=== PATIENT | male | born 1980 | race Caucasian/White ===

== ENCOUNTER 2024-01-22 16:16 | Emergency (ER) | payer SELFPAY ==
--- NOTE | 2024-01-22 17:16 | RAD REPORT ---
EXAM DESCRIPTION: CT - Chest Abd Pelvis Wo Con - 01/22/2024 4:47 pm CLINICAL HISTORY: Fall with chest and abdominal pain COMPARISON: none TECHNIQUE: Computed axial tomography of the chest, abdomen and pelvis was obtained. Oral contrast wa s given. IV contrast was not requested. All CT scans are performed using dose optimization technique as appropriate and may include automated exposure control or mA/KV adjustment according to patient size. FINDINGS: The evaluation of mediastinum, cody, vessels and solid organs is limited secondary to the lack of IV contrast administration A lung contusion is not present. A pleural effusion is not present. A pericardial effusion is not seen. A mediastinal hematoma is not seen. The liver, spleen, pancreas, adrenals, kidneys and bladder do not demonstrate a traumatic injury. There is no evidence of diverticulitis. Small left inguinal hernia IMPRESSION: No acute traumatic injury involving the chest, abdomen or pelvis is seen
--- NOTE | 2024-01-22 17:19 | EDPHYS ---
Physician Documentation [facility] Name: John Rodriguez Age: 44 yrs Sex: Male : 1980 Arrival Date: 01/22/2024 Time: 16:16 Bed 16 Private MD: ED Physician Vincenzo Carter HPI: 01/21 17:32 This 44 yrs old Male presents to ER via Ambulatory with complaints of Fall Injury, Back kb Pain. 17:32 Pt is a 44 year old male who presents for pain to right side of back and right kb hip/pelvis after falling on ladder 4 days ago. States he was working on a roof and the ladder slipped off of the porch it was on causing him to fall onto his right side on roof. States the ladder got stuck in the ground after falling off of the porch so he was able to catch himself on the ladder and did not fall to the ground.. Historical: - Allergies: 16:30 No Known Allergies; hb - Home Meds: 16:30 None [Active]; hb - PMHx: 16:30 None; hb - PSHx: 16:30 None; hb - Immunization history:: Adult Immunizations up to date. - Infectious Disease History:: Denies. - Social history:: Smoking status: Reported history of juuling and/or vaping. ROS: 17:31 Constitutional: As per HPI kb Exam: 17:31 Constitutional: This is a well developed, well nourished patient who is awake, alert, kb and in no acute distress. Head/Face: Normocephalic, atraumatic. ENT: Moist Mucous membranes Chest/axilla: Normal chest wall appearance and motion. Cardiovascular: Regular rate Respiratory: Respirations even and unlabored. No increased work of breathing. Talking in full sentences Abdomen/GI: Soft, non-tender. No distention Skin: Warm, dry with normal turgor. Normal color. MS/ Extremity: Pulses equal, no cyanosis. Neurovascular intact. Full, normal range of motion. Neuro: Awake and alert, GCS 15, oriented to person, place, time, and situation. Moves all extremities. Normal gait. 17:31 Back: pain, that is moderate, of the right flank, Vital Signs: 16:26 BP 157 / 100; Pulse 97; Resp 16; Temp 97.8(TE); Pulse Ox 100% on R/A; Weight 72.57 kg; hb Height 5 ft. 10 in. ; Pain 10/10; 17:50 BP 168 / 102; Pulse 93; Resp 16; Pulse Ox 99% ; dd2 16:26 Body Mass Index 22.96 (72.57 kg, 177.8 cm) hb 16:26 Pain Scale: Adult hb MDM: 16:21 Patient medically screened. kb 17:32 Differential diagnosis: contusion, fracture, strain. Data reviewed: vital signs, nurses kb notes. Counseling: I had a detailed discussion with the patient and/or guardian regarding the historical points, exam findings, and any diagnostic results supporting the discharge/admit diagnosis, radiology results, the need for outpatient follow up, a family practitioner, to return to the emergency department if symptoms worsen or persist or if there are any questions or concerns that arise at home. 01/21 16:34 Order name: CT Chest Abdomen Pelvis W/O Contrast; Complete Time: 17:18 kb Administered Medications: 17:47 Drug: HYDROcodone-acetaminophen PO 5 mg-325 mg 1 tabs PO once Route: PO; dd2 17:51 Follow up: Response: Medication administered at discharge. dd2 17:47 Drug: Diazepam PO 5 mg PO once Route: PO; dd2 17:51 Follow up: Response: Medication administered at discharge. dd2 Disposition Summary: 01/22/24 17:19 Discharge Ordered Notes: Location: Home kb Condition: Stable kb Diagnosis - Contusion of right flank kb Followup: kb - With: Emergency Department - When: As needed - Reason: Worsening of condition Followup: kb - With: Private Physician - When: 2 - 3 days - Reason: Recheck today's complaints, Continuance of care, Re-evaluation by your physician Discharge Instructions: - Discharge Summary Sheet kb - Musculoskeletal Pain kb Forms: - Medication Reconciliation Form kb - Antibiotic Education kb - Prescription Opioid Use kb - Patient Portal Instructions kb - Leadership Thank You Letter kb Prescriptions: - Diclofenac Sodium 75 mg Oral tablet, delayed release (enteric coated) - take 1 tablet ORAL route 2 times per day As needed; 30 tablet; Refills: 0, kb Product Selection Permitted - orphenadrine citrate 100 mg Oral Tablet Sustained Release - take 1 tablet ORAL route 2 times per day As needed; 20 tablet; Refills: 0, kb Product Selection Permitted Signatures: Dispatcher [employer] Denise Castillo, SAP GATHERER-C SAP GATHERER-Carleen Pina, RN RN MERISSA Cervantes RN RN dd2
--- NOTE | 2024-01-22 17:19 | ER ---
Nurse's Notes [facility] Name: John Rodriguez Age: 44 yrs Sex: Male : 1980 Arrival Date: 01/22/2024 Time: 16:16 Bed 16 Private MD: Diagnosis: Contusion of right flank Presentation: 01/21 16:26 Chief complaint: Fell from ladder while working on roof yesterday, hit right flank and hb hip on side of trailer, c/o pain 03/28. Coronavirus screen: At this time, the client does not indicate any symptoms associated with coronavirus-19. Ebola Screen: No symptoms or risks identified at this time. Initial Sepsis Screen: Does the patient meet any 2 criteria? No. Patient's initial sepsis screen is negative. Does the patient have a suspected source of infection? No. Patient's initial sepsis screen is negative. Risk Assessment: Do you want to hurt yourself or someone else? Patient reports no desire to harm self or others. Onset of symptoms was January 21, 2024. 16:26 Method Of Arrival: Ambulatory hb 16:26 Acuity: BAY 3 hb Historical: - Allergies: 16:30 No Known Allergies; hb - Home Meds: 16:30 None [Active]; hb - PMHx: 16:30 None; hb - PSHx: 16:30 None; hb - Immunization history:: Adult Immunizations up to date. - Infectious Disease History:: Denies. - Social history:: Smoking status: Reported history of juuling and/or vaping. Screenin:45 [facility] ED Fall Risk Assessment (Adult) History of falling in the last 3 months, dd2 including since admission Yes- single mechanical fall (1 pt) Confusion or Disorientation No (0 pts) Intoxicated or Sedated No (0 pts) Impaired Gait No (0 pts) Mobility Assist Device Used No (0 pt) Altered Elimination No (0 pt) Score/Fall Risk Level 0 - 2 = Low Risk Oriented to surroundings, Maintained a safe environment, Educated pt \T\ family on fall prevention, incl call for assistance when getting out of bed, Assessed \T\ reinforced patient's understanding of fall precautions, Hourly rounding (assess needs \T\ fall precautionary measures) done. Abuse screen: Denies threats or abuse. Denies injuries from another. Nutritional screening: No deficits noted. Tuberculosis screening: No symptoms or risk factors identified. Assessment: 16:45 General: Appears in no apparent distress. uncomfortable, Behavior is calm, cooperative, dd2 appropriate for age. Pain: Complains of pain in right flank. Neuro: No deficits noted. Cardiovascular: No deficits noted. Respiratory: No deficits noted. GI: No deficits noted. : No deficits noted. EENT: No deficits noted. Derm: No deficits noted. Musculoskeletal: Reports pain in right hip and right flank. Vital Signs: 16:26 BP 157 / 100; Pulse 97; Resp 16; Temp 97.8(TE); Pulse Ox 100% on R/A; Weight 72.57 kg; hb Height 5 ft. 10 in. ; Pain 10/10; 17:50 BP 168 / 102; Pulse 93; Resp 16; Pulse Ox 99% ; dd2 16:26 Body Mass Index 22.96 (72.57 kg, 177.8 cm) hb 16:26 Pain Scale: Adult hb ED Course: 16:18 Patient arrived in ED. mr 16:21 Denise Navarrete FNP-C is PHCP. kb 16:21 Vincenzo Carter MD is Attending Physician. kb 16:30 Triage completed. hb 16:32 Arm band placed on. hb 16:45 Patient has correct armband on for positive identification. Bed in low position. Call dd2 light in reach. Side rails up X 1. Provided Education on: CALL LIGHT, MEDS, . Pulse ox on. NIBP on. Door closed. Noise minimized. Lights dimmed. Warm blanket given. Pillow given. 16:45 No provider procedures requiring assistance completed. Patient did not have IV access dd2 during this emergency room visit. 16:48 CT Chest Abdomen Pelvis W/O Contrast In Process Unspecified. EDMS 17:45 MERISSA NAJERA, RN is Primary Nurse. dd2 Administered Medications: 17:47 Drug: HYDROcodone-acetaminophen PO 5 mg-325 mg 1 tabs PO once Route: PO; dd2 17:51 Follow up: Response: Medication administered at discharge. dd2 17:47 Drug: Diazepam PO 5 mg PO once Route: PO; dd2 17:51 Follow up: Response: Medication administered at discharge. dd2 Medication: 16:45 VIS not applicable for this client. dd2 Outcome: 17:19 Discharge ordered by MD. meyers 17:50 Discharged to home ambulatory, dd2 17:50 Condition: improved 17:50 Discharge instructions given to patient, Instructed on discharge instructions, follow up and referral plans. medication usage, Demonstrated understanding of instructions, follow-up care, medications, Prescriptions given X 2, 17:51 Patient left the ED. dd2 Signatures: Dispatcher [employer] EDMS Denise Navarrete, DIRECT CARE PROVIDER-C DIRECT CARE PROVIDER-Lida Weldon, Reg Reg mr Carleen Kumar, RN RN MERISSA Cervantes RN RN dd2
[2024-01-22] MEDS ORDERED: HYDROCODONE/APAP 5/325 MG TAB ONE (17:46)
[2024-01-22] MEDS ORDERED: DIAZEPAM 5 MG TABLET ONE (17:46)
[2024-01-22 22:17] VITALS: TEMP 97.8
[2024-01-22 22:19] VITALS: BP 168/102; O2SAT 99
== END 2024-01-22 17:51 | disposition home or self-care (01) ==
LOC: ER 16:16
DX: S30.1XXA Contusion of abdominal wall, initial encounter (principal)
CPT/HCPCS: 71250; 74176; 99283

== ENCOUNTER 2025-03-23 14:09 | Emergency (ER) | payer OTHER, SELFPAY ==
--- NOTE | 2025-03-23 15:06 | RAD REPORT ---
EXAM: Chest Single View HISTORY: 45 years Male COUGH COMPARISON: No prior exams FINDINGS: LUNGS/PLEURA: The lungs are clear. No pleural effusions or pneumothorax. No pulmonary edema. CARDIAC/MEDIASTINUM: The cardiac silhouette is within normal limits. UPPER ABDOMEN: No significant abnormality. BONES: No acute abnormality. LINES/TUBES/OTHER: Metallic foreign body overlies the right upper chest wall. IMPRESSION: No evidence of acute cardiopulmonary disease.
[2025-03-23] MEDS ORDERED: NA CHLORIDE 0.9% 1,000 ML ONE (15:12)
[2025-03-23] MEDS ORDERED: FOLIC ACID 5 MG/ML VIAL ONE (15:12)
[2025-03-23 15:23] LABS: Absolute Lymphocytes (CBC) 1.5 K/uL (0.7-4.9); Hematocrit 44.6 % (39.6-49.0); Hemoglobin 15.4 g/dL (13.6-17.9); MCH 32.7 pg (27.0-35.0); MCHC 34.6 g/dL (32.0-36.0); MCV 94.6 fL (80-100); MPV 7.7 fL (7.6-11.3); Nucleated RBC Absolute Count 0.0 (0-0); Nucleated Red Blood Cells % 0.1 % (0-0); RBC Red Blood Cell Count 4.72 M/uL (4.33-5.43); White Blood Count 6.80 thou/uL (4.3-10.9)
[2025-03-23 15:24] LABS: Urine Microscopic Reflex YN NO UMIC
[2025-03-23] MEDS ORDERED: LORazepam 2 MG/ML VIAL ONE ×2 (15:24→16:14)
[2025-03-23 15:39] LABS: PT Prothrombin Time 11.8 SECONDS (10-13.0); Protime INR 1.05
[2025-03-23] MEDS ORDERED: ASPIRIN 81 MG CHEWABLE TABLET ONE (15:39)
[2025-03-23 15:49] LABS: ALT/SGPT 26 U/L (16-61); Albumin 3.8 g/dL (3.4-5.0); Albumin/Globulin Ratio 1.0 (1.1-1.8); Alkaline Phosphatase 65 U/L (45-117); Anion Gap 9.4 mEq/L (5.0-15.0); BUN Blood Urea Nitrogen 12 mg/dL (7-18); Bilirubin Indirect, Calculated 0.3 mg/dL (0.2-0.8); Globulin 3.7 g/dL (2.3-3.5); Glucose Level 114 mg/dL (74-106); HDL Cholesterol 85 mg/dL (40-60); LDL Cholesterol, Calculated 92 mg/dL (<130); LDL Cholesterol,Calc NonReport 92; Lipase 42 U/L (13-75); Magnesium 2.1 mg/dL (1.6-2.4); NT PRO-BNP 186 pg/mL (<125); Potassium 4.4 mEq/L (3.5-5.1)
--- NOTE | 2025-03-23 15:50 | RAD REPORT ---
EXAMINATION: Ct Stroke Brain Wo Cont CLINICAL INDICATION: Male, 45 years old.STROKE ALERT TECHNIQUE: Axial CT images from the skull base to the vertex without intravenous contrast. Coronal an d sagittal reformatted images were created from the data set. One or more of the following dose reduction techniques were used: Automated exposure control, adjustment of the mA and/or kV according to patient size, and/or iterative reconstruction. Unless otherwise specified, incidental findings do not require dedicated imaging follow-up. [id number]. COMPARISON: No prior exams FINDINGS: INTRACRANIAL: No acute intracranial hemorrhage. No acute large vascular territory infarct. No hydroce phalus. No mass effect or midline shift. No significant white matter disease. VASCULATURE: No visualized abnormalities in the arteries or dural venous sinuses. SCALP/SKULL: No calvarial fracture identified. No acute soft tissue abnormality. SINUSES: Circumferential thickening in the left maxillary sinus No significant mastoid fluid. IMPRESSION: No acute intracranial abnormality. The findings were communicated to Dr. Villaseñor on 03/23/2025 3:47 PM.
--- NOTE | 2025-03-23 15:51 | RAD REPORT ---
EXAMINATION: Neck Angio CLINICAL INDICATION: Male, 45 years old. PAIN TECHNIQUE: Axial CT images were obtained from the aortic arch to the skull base after intravenous con trast utilizing angiographic protocol with 3D post-processing (maximum intensity projection images, volume rendered images and/or shaded surface rendered images). One or more of the following dose redu ction techniques were used: Automated exposure control, adjustment of the mA and/or kV according to patient size, and/or iterative reconstruction. Unless otherwise specified, incidental findings do not require dedicated imaging follow-up. [id number]. NASCET criteria used. Mild 0-49% stenosis Moderate 50-69% stenosis Severe 70-99% stenosis COMPARISON: No prior exam. FINDINGS: AORTA: Normal RIGHT: - CCA: No flow limiting stenosis (>= 50%). No dissection. - ICA: No flow limiting stenosis (>= 50%). No dissection. - ECA: No flow limiting stenosis (>= 50%). No dissection. LEFT: - CCA: No flow limiting stenosis (>= 50%). No dissection. - ICA: No flow limiting stenosis (>= 50%). No dissection. - ECA: No flow limiting stenosis (>= 50%). No dissection. VERTEBRAL: Patent SOFT TISSUE: No significant neck soft tissue abnormalities. The visualized lung apices are clear. 3D images confirm these findings. IMPRESSION: No arterial dissection or stenosis identified within the neck.
--- NOTE | 2025-03-23 15:51 | RAD REPORT ---
EXAMINATION: Head angio CLINICAL INDICATION: Male, 45 years old. TIA TECHNIQUE: Axial CT images were obtained through the head after intravenous contrast utilizing angiog raphic protocol with 3D post-processing (maximum intensity projection images, volume rendered images and/or shaded surface rendered images). One or more of the following dose reduction technique s were used: Automated exposure control, adjustment of the mA and/or kV according to patient size, and/or iterative reconstruction. Unless otherwise specified, incidental findings do not require dedic ated imaging follow-up. COMPARISON: No prior exam. FINDINGS: RIGHT: ICA: No aneurysm, stenosis, or occlusion. CRISTY: No aneurysm, stenosis, or occlusion. MCA: No aneurysm, stenosis, or occlusion. RN COMPLEX CARE: No aneurysm, stenosis, or occlusion. LEFT: ICA: No aneurysm, stenosis, or occlusion. CRISTY: No aneurysm, stenosis, or occlusion. MCA: No aneurysm, stenosis, or occlusion. RN COMPLEX CARE: No aneurysm, stenosis, or occlusion. Vertebrobasilar: The vertebral arteries are patent. The basilar artery is normal in appearance. 3D images confirm these findings. IMPRESSION: No occlusion, aneurysm, or hemodynamically significant stenosis identified.
--- NOTE | 2025-03-23 16:00 | EDPHYS ---
Physician Documentation [facility] Name: John Rodriguez Age: 45 yrs Sex: Male : 1980 Arrival Date: 03/23/2025 Time: 14:09 Bed 5 Private MD: JUAN MIGUEL Physician Jonnathan Villaseñor HPI: 03/23 15:35 This 45 yrs old Male presents to ER via Ambulatory with complaints of Head liz Pain, Body Tingling- LT SIDE. 15:35 The patient complains of pain to the top of head, left frontal area, left side of the liz back of head, right frontal area and right side of the back of head. The patient describes the headache as aching. Onset: The symptoms/episode began/occurred 3 day(s) ago. The patient's problem is reported as paresthesias, in left upper extremity, in left lower extremity. Onset: The symptoms/episode began/occurred 3 day(s) ago. Duration: The episodes are intermittent. The symptoms are alleviated by nothing. The symptoms are aggravated by nothing. Associated signs and symptoms: Pertinent positives: ANXIOUS. Historical: - Allergies: 14:37 No Known Allergies; db - Home Meds: 14:37 None [Active]; db - PMHx: 14:37 None; db - PSHx: 14:37 None; db - Immunization history:: Adult Immunizations unknown. - Infectious Disease History:: Denies. - Social history:: Smoking status: Reported history of juuling and/or vaping. - Family history:: not pertinent. ROS: 15:35 Constitutional: Negative for fever, chills, and weight loss, Eyes: Negative for injury, liz pain, redness, and discharge, ENT: Negative for injury, pain, and discharge, Neck: Negative for injury, pain, and swelling, Cardiovascular: Negative for chest pain, palpitations, and edema, Respiratory: Negative for shortness of breath, cough, wheezing, and pleuritic chest pain, Abdomen/GI: Negative for abdominal pain, nausea, vomiting, diarrhea, and constipation, Back: Negative for injury and pain, : Negative for injury, bleeding, discharge, and swelling, MS/Extremity: Negative for injury and deformity, Skin: Negative for injury, rash, and discoloration, Psych: Negative for depression, anxiety, suicide ideation, homicidal ideation, and hallucinations, Allergy/Immunology: Negative for hives, rash, and allergies, Endocrine: Negative for neck swelling, polydipsia, polyuria, polyphagia, and marked weight changes, Hematologic/Lymphatic: Negative for swollen nodes, abnormal bleeding, and unusual bruising, 15:35 Neuro: Positive for headache, near syncope, ANXIETY, Exam: 15:36 Radiologist reports: CT HEAD AND CTA'S NEGATIVE liz 15:36 Constitutional: This is a well developed, well nourished patient who is awake, alert, and in no acute distress. Head/Face: Normocephalic, atraumatic. Eyes: Pupils equal round and reactive to light, extra-ocular motions intact. Lids and lashes normal. Conjunctiva and sclera are non-icteric and not injected. Cornea within normal limits. Periorbital areas with no swelling, redness, or edema. ENT: Nares patent. No nasal discharge, no septal abnormalities noted. Tympanic membranes are normal and external auditory canals are clear. Oropharynx with no redness, swelling, or masses, exudates, or evidence of obstruction, uvula midline. Mucous membranes moist. Neck: Trachea midline, no thyromegaly or masses palpated, and no cervical lymphadenopathy. Supple, full range of motion without nuchal rigidity, or vertebral point tenderness. No Meningismus. Chest/axilla: Normal chest wall appearance and motion. Nontender with no deformity. No lesions are appreciated. Cardiovascular: Regular rate and rhythm with a normal S1 and S2. No gallops, murmurs, or rubs. Normal PMI, no JVD. No pulse deficits. Respiratory: Lungs have equal breath sounds bilaterally, clear to auscultation and percussion. No rales, rhonchi or wheezes noted. No increased work of breathing, no retractions or nasal flaring. Abdomen/GI: Soft, non-tender, with normal bowel sounds. No distension or tympany. No guarding or rebound. No evidence of tenderness throughout. Back: No spinal tenderness. No costovertebral tenderness. Full range of motion. Male : Normal genitalia with no discharge or lesions. Skin: Warm, dry with normal turgor. Normal color with no rashes, no lesions, and no evidence of cellulitis. MS/ Extremity: Pulses equal, no cyanosis. Neurovascular intact. Full, normal range of motion., bilateral aka Neuro: Awake and alert, GCS 15, oriented to person, place, time, and situation. Cranial nerves II-XII grossly intact. Motor strength 5/5 in all extremities. Sensory grossly intact. Cerebellar exam normal. Normal gait. Psych: Awake, alert, with orientation to person, place and time. Behavior, mood, and affect are within normal limits. 15:36 ECG was reviewed by the Attending Physician. 15:36 Musculoskeletal/extremity: ROM: no acute changes, intact in all extremities, full active range of motion, full passive range of motion, Circulation is intact in all extremities. Sensation intact. Compartment Syndrome exam of affected extremity: is normal. Joints: All joints appear normal with full range of motion. Weight bearing: able to fully bear weight, DVT Exam: No signs of deep vein thrombosis. no pain, no swelling, no tenderness, negative Homans' sign noted on exam, no appreciated bluish discoloration, no erythema, no increased warmth, 15:36 Neuro: Orientation: is normal, appropriate for stated age, no acute changes, Mentation: is normal, appropriate for stated age, no acute changes, Memory: is normal, appropriate for stated age, no acute changes, Cranial nerves: grossly normal, is grossly normal based on the patient's age, no acute changes, Cerebellar function: is grossly normal, is grossly normal based on the patient's age, no acute changes, Motor: is normal, is grossly normal based on the patient's age, no acute changes, moves all fours, strength is normal, the no evidence of posturing, Sensation: is normal, no obvious gross deficits, appropriate no acute changes, Gait: is steady, appropriate for age, Babinski testing is normal, seizure activity, is not displayed by the patient, Vital Signs: 14:35 BP 134 / 97; Pulse 85; Resp 18; Temp 98.5(O); Pulse Ox 98% ; Weight 61.23 kg; Height 5 db ft. 10 in. ; 15:00 BP 127 / 91; Pulse 79; Resp 18; Pulse Ox 99% on R/A; nh2 16:15 BP 126 / 88; Pulse 82; Resp 18; Pulse Ox 99% on R/A; nh2 14:35 Body Mass Index 19.37 (61.23 kg, 177.8 cm) db NIH Stroke Scale Scores: 15:36 NIHSS Score: 0 liz Irina Coma Score: 15:42 Eye Response: spontaneous(4). Motor Response: obeys commands(6). Verbal Response: liz oriented(5). Total: 15. MDM: 14:21 Medical Screening Exam initiated liz 15:42 Differential diagnosis: cluster headache, cerebral vascular accident, CVA, TIA, liz Dementia, paralysis, Alzheimer disease, Parkinson disease, metabolic disorder, hypertensive headache, intracerebral hemorrhage, neoplasm, sinusitis, subarachnoid bleed, subdural hematoma, temporal arteritis, tension headache, traumatic injuries, trigeminal neuralgia, uremia, vasomotor headache. TNKase (Tenecteplase) Screening: Indications: Definite evidence of stroke, ischemic, embolic, or hypertensive: No. Treatment will start within 4.5 hours onset of symptoms: No. No evidence of intracranial hemorrhage or CT of head and no evidence of peripheral hemorrhage or recent CVA: Yes. Consent for thrombolytic therapy: No. Contraindications: Patient reports onset of signs and symptoms of stroke greater than 6 hours ago: No. Data reviewed: vital signs, nurses notes, lab test result(s), EKG, radiologic studies, plain films. Consideration of Admission/Observation Escalation of care including admission/observation considered. I considered the following discharge prescriptions or medication management in the emergency department Medications were administered in the Emergency Department. See MAR. Independent interpretation of the following test(s) in the Emergency Department EKG: See my EKG interpretation above. Test considered but Not performed: MRI: NO MRI BRAIN. Care significantly affected by the following chronic conditions: NONE , SMOKER , VAPES, ANXIETY. Counseling: I had a detailed discussion with the patient and/or guardian regarding the historical points, exam findings, and any diagnostic results supporting the discharge/admit diagnosis, lab results, radiology results, the need for outpatient follow up, for definitive care, a family practitioner, a neurologist. 03/23 14:23 Order name: Basic Metabolic Panel; Complete Time: 16:34 liz 03/23 14:23 Order name: CBC with Diff; Complete Time: 15:58 liz 03/23 14:23 Order name: LFT's; Complete Time: 16:34 liz 03/23 14:23 Order name: Magnesium; Complete Time: 16:34 liz 03/23 14:23 Order name: NT PRO-BNP; Complete Time: 16:34 liz 03/23 14:23 Order name: PT-INR; Complete Time: 15:58 03/23 14:23 Order name: Troponin HS; Complete Time: 16:34 03/23 14:23 Order name: Lipase; Complete Time: 16:34 03/23 14:23 Order name: UA Rfx Joe Cult if indicated; Complete Time: 15:58 liz 03/23 14:23 Order name: CRP; Complete Time: 16:34 03/23 14:23 Order name: Lipid Profile; Complete Time: 16:34 03/23 14:23 Order name: XRAY Chest (1 view); Complete Time: 15:58 03/23 14:23 Order name: CT Stroke Brain w/o Contrast; Complete Time: 15:58 03/23 14:23 Order name: CT Head Angio; Complete Time: 15:58 03/23 14:23 Order name: CT Neck Angio; Complete Time: 15:58 03/23 14:23 Order name: EKG; Complete Time: 14:23 03/23 14:23 Order name: Cardiac monitoring; Complete Time: 15:16 03/23 14:23 Order name: EKG - Nurse/Tech; Complete Time: 15:16 03/23 14:23 Order name: IV Saline Lock; Complete Time: 15:16 03/23 14:23 Order name: Labs collected and sent; Complete Time: 15:16 03/23 14:23 Order name: O2 Per Protocol; Complete Time: 15:16 03/23 14:23 Order name: O2 Sat Monitoring; Complete Time: 15:16 [facility] EC:36 Rate is 71 beats/min. Rhythm is regular. QRS [place] is Normal. VA interval is normal. QRS liz interval is normal. QT interval is normal. No Q waves. T waves are Normal. No ST changes noted. Clinical impression: NSR w/ Non-specific ST/T Changes. Interpreted by me. Reviewed by me. Administered Medications: 15:30 Drug: NS 0.9% IV 1000 ml IV at 1000 ml once; to be given as a bolus over 60 minutes nh2 Route: IV; Rate: 1000 ml; Site: left antecubital; 16:21 Follow up: IV Status: Completed infusion; IV Intake: 1000ml nh2 15:30 Drug: foLIC Acid IVPB 1 mg IVPB once Route: IVPB; Site: left antecubital; nh2 16:21 Follow up: Response: No adverse reaction nh2 15:31 Drug: Ativan IVP 1 mg IVP once; VO from Dr. Villaseñor, Repeat x1 if needed Route: IVP; nh2 Site: right antecubital; 16:00 Follow up: Response: No adverse reaction; Anxiety decreased nh2 15:55 Drug: Aspirin PO Chewable Tablet 324 mg PO once; 81 mg tablets x [address] NEG Route: PO; nh2 16:21 Follow up: Response: No adverse reaction nh2 16:25 Drug: Ativan IVP 1 mg IVP once; Repeat per MD order Route: IVP; Site: left antecubital; nh2 16:45 Follow up: Response: No adverse reaction nh2 Disposition Summary: 03/23/25 15:59 Discharge Ordered Notes: Location: Home liz Problem: new liz Symptoms: have improved liz Condition: Stable liz Diagnosis - Headache liz - Anxiety disorder, unspecified liz - Tobacco abuse counseling liz - Tobacco use liz Followup: liz - With: Private Physician - When: 2 - 3 days - Reason: Recheck today's complaints, Continuance of care, Re-evaluation by your physician Followup: liz - With: Dylan Hays MD - When: 2 - 3 days - Reason: Recheck today's complaints, Continuance of care, Re-evaluation by your physician Discharge Instructions: - Discharge Summary Sheet liz - General Headache Without Cause liz - Self-Destructive Behavior liz - Steps to Quit Smoking liz - Health Risks of Smoking liz - Stroke Prevention liz - Aspirin and Your Heart liz - General Headache Without Cause, [id number] liz - Stroke Prevention, [id number] liz - Supporting Someone With Anxiety liz - Managing Anxiety, Adult liz - E-cigarette or Vaping Use-Associated Lung Injury liz Forms: - Medication Reconciliation Form liz - Antibiotic Education liz - Prescription Opioid Use liz - Patient Portal Instructions liz - Leadership Thank You Letter liz Prescriptions: - Folic Acid 1 mg Oral Tablet - take 1 tablet ORAL route once daily; 30 tablet; Refills: 0, Product Selection liz Permitted NIH Stroke Scale - NIH Stroke Score Date: 03/23/2025 Time: 15:36 Total Score = 0 10. Dysarthria (speech clarity - read or repeat words) - 0(Normal) 11. Extinction and Inattention (visual/tactile/auditory/spatial/personal) - 0(No abnormality) 1a. Level of Consciousness (LOC) - 0(Alert) 1b. Level of Consciousness (LOC) (Month \T\ Age) - 0(Both) 1c. LOC Commands (Open \T\ Closes Eyes/Cat Driver) - 0(Both) 2. Best Gaze (Lateral Gaze Paresis) - 0(Normal) 3. Visual Field Loss - 0(No visual loss) 4. Facial Palsy - 0(Normal) 5a. Left Arm: Motor (10-second hold) - 0(No drift) 5b. Right Arm: Motor (10-second hold) - 0(No drift) 6a. Left Leg: Motor (5-second hold - always test supine) - 0(No drift) 6b. Right Leg: Motor (5-second hold - always test supine) - 0(No drift) 7. Limb Ataxia (finger/nose \T\ heel/barrera - test with eyes open) - 0(Absent) 8. Sensory Loss (pinprick arms/legs/face) - 0(Normal) 9. Best Language: Aphasia (description/naming/reading) - 0(No aphasia) Initials: liz Signatures: Dispatcher [employer] EDMS Jonnathan Villaseñor MD MD cha Benton, Danielle, RN RN db Nirmal Valdez Jr, RN RN nh2 Corrections: (The following items were deleted from the chart) 14:24 14:23 BASIC METABOLIC PANEL+C.LAB.BRZ ordered. EDMS EDMS 14:24 14:23 CBC+H.LAB.BRZ ordered. EDMS EDMS 14:24 14:23 HEPATIC FUNCTION+C.LAB.BRZ ordered. EDMS EDMS 14:24 14:23 MAGNESIUM+C.LAB.BRZ ordered. EDMS EDMS 14:24 14:23 PROBNP+C.LAB.BRZ ordered. EDMS EDMS 14:24 14:23 PROTIME (+INR)+COAG.LAB.BRZ ordered. EDMS EDMS 14:24 14:23 Troponin High Sensitivity+C.LAB.BRZ ordered. EDMS EDMS 14:24 14:23 LIPASE+C.LAB.BRZ ordered. EDMS EDMS 14:24 14:23 UA Rfx Joe Cult if indicated+U.LAB.BRZ ordered. EDMS EDMS 14:24 14:23 C-REACTIVE PROTEIN+C.LAB.BRZ ordered. EDMS EDMS 14:24 14:23 LIPID PROFILE+C.LAB.BRZ ordered. EDMS EDMS 14:24 14:24 CT-STROKE BRAIN W/O CONTRAST+CT.RAD.BRZ ordered. EDMS EDMS 14:24 14:24 Head Angio+CT.RAD.BRZ ordered. EDMS EDMS 14:24 14:24 Neck Angio+CT.RAD.BRZ ordered. EDMS EDMS
--- NOTE | 2025-03-23 16:00 | ER ---
Nurse's Notes [facility] Name: John Rodriguez Age: 45 yrs Sex: Male : 1980 Arrival Date: 03/23/2025 Time: 14:09 Bed 5 Private MD: Diagnosis: Headache;Anxiety disorder, unspecified;Tobacco abuse counseling;Tobacco use Presentation: 03/23 14:35 Chief complaint: Patient states: LEFT HEAD TINGLING DOWN INTO LEFT ARM X 2 DAYS. IN db NAD. DENIES HEADACHE. TRIED TYLENOL AT WORK. CONCERNED FOR "BLOOD CLOT". Coronavirus screen: Client denies travel out of the [place] in the last 14 days. At this time, the client does not indicate any symptoms associated with coronavirus-19. Ebola Screen: Patient negative for fever greater than or equal to 101.5 degrees Fahrenheit, and additional compatible Ebola Virus Disease symptoms Patient denies exposure to infectious person. Patient denies travel to an Ebola-affected area in the 21 days before illness onset. No symptoms or risks identified at this time. Initial Sepsis Screen: Does the patient meet any 2 criteria? No. Patient's initial sepsis screen is negative. Does the patient have a suspected source of infection? No. Patient's initial sepsis screen is negative. Risk Assessment: Do you want to hurt yourself or someone else? Patient reports no desire to harm self or others. Onset of symptoms was March 20, 2025. 14:35 Method Of Arrival: Ambulatory db 14:35 Acuity: BAY 3 db Triage Assessment: 14:37 General: Appears in no apparent distress. comfortable, Behavior is calm, cooperative, db appropriate for age. Pain: Denies pain. Neuro: Level of Consciousness is awake, alert, obeys commands, Oriented to person, place, time, situation, Speech is normal, Facial symmetry appears normal. Neuro: Reports dizziness, numbness. Respiratory: Airway is patent Respiratory effort is even, unlabored, Respiratory pattern is regular, symmetrical. Historical: - Allergies: 14:37 No Known Allergies; db - Home Meds: 14:37 None [Active]; db - PMHx: 14:37 None; db - PSHx: 14:37 None; db - Immunization history:: Adult Immunizations unknown. - Infectious Disease History:: Denies. - Social history:: Smoking status: Reported history of juuling and/or vaping. - Family history:: not pertinent. Screenin:[facility] ED Fall Risk Assessment (Adult) History of falling in the last 3 months, nh2 including since admission No falls in past 3 months (0 pts) Confusion or Disorientation No (0 pts) Intoxicated or Sedated No (0 pts) Impaired Gait No (0 pts) Mobility Assist Device Used No (0 pt) Altered Elimination No (0 pt) Score/Fall Risk Level 0 - 2 = Low Risk Oriented to surroundings, Maintained a safe environment, Educated pt \\T\\ family on fall prevention, incl call for assistance when getting out of bed, Assessed \\T\\ reinforced patient's understanding of fall precautions. Abuse screen: Denies threats or abuse. Denies injuries from another. Nutritional screening: No deficits noted. Tuberculosis screening: No symptoms or risk factors identified. Assessment: 14:45 General: Appears uncomfortable, Behavior is cooperative, anxious, quiet, Reports nh2 feeling ill for fatigue for 1-2 days. Pain: Denies pain. Cardiovascular: Patient's skin is warm and dry. Rhythm is sinus rhythm. Respiratory: Reports shortness of breath on exertion cough that is aggravated by smoking/vaping Airway is patent Trachea midline Respiratory effort is even, unlabored, Respiratory pattern is regular, symmetrical. GI: Abdomen is flat, non-distended, Reports nausea. EENT: No signs and/or symptoms were reported regarding the EENT system. Derm: Skin is intact, Skin is pink, warm \\T\\ dry. Skin temperature is warm. Musculoskeletal: Circulation, motion, and sensation intact. Range of motion: intact in all extremities. 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 Speech is normal, Facial symmetry appears normal, Reports numbness in left side of body since 3 days ago weakness in left side of body since 3 days ago. : No signs and/or symptoms were reported regarding the genitourinary system. 15:15 Reassessment: Patient and/or family updated on plan of care and expected duration. Pain nh2 level reassessed. Patient is alert, oriented x 3, equal unlabored respirations, skin warm/dry/pink. 15:30 Reassessment: pt transferred to CT via wheelchair. nh2 16:23 Reassessment: Patient and/or family updated on plan of care and expected duration. Pain nh2 level reassessed. Patient is alert, oriented x 3, equal unlabored respirations, skin warm/dry/pink. reports still feeling anxious, MD notified. Vital Signs: 14:35 BP 134 / 97; Pulse 85; Resp 18; Temp 98.5(O); Pulse Ox 98% ; Weight 61.23 kg; Height 5 db ft. 10 in. ; 15:00 BP 127 / 91; Pulse 79; Resp 18; Pulse Ox 99% on R/A; nh2 16:15 BP 126 / 88; Pulse 82; Resp 18; Pulse Ox 99% on R/A; nh2 14:35 Body Mass Index 19.37 (61.23 kg, 177.8 cm) db [place] Coma Score: 15:42 Eye Response: spontaneous(4). Motor Response: obeys commands(6). Verbal Response: liz oriented(5). Total: 15. NIH Stroke Scale Scores: 15:36 NIHSS Score: 0 liz ED Course: 14:12 Patient arrived in ED. cj3 14:21 Jonnathan Villaseñor MD is Attending Physician. liz 14:37 Triage completed. db 14:38 Arm band placed on Patient placed in waiting room. db 14:42 Radiology exam delayed due to lab results not completed at this time. IV insertion mw3 attempt and/or patient not having appropriate IV at this time. 15:00 Patient has correct armband on for positive identification. Bed in low position. Call nh2 light in reach. Side rails up X 1. Provided Education on: using call light for assistance. 15:01 XRAY Chest (1 view) In Process Unspecified. EDMS 15:01 Nirmal Valdez Jr, RN is Primary Nurse. nh2 15:11 EKG done, by critical care technician. reviewed by Jonnathan Villaseñor MD. ts3 15:16 Initial lab(s) drawn, by ED staff, sent to lab. Inserted saline lock: 22 gauge in right ts3 antecubital area, using aseptic technique. Blood collected. Flushed with 10 mL NS. 15:16 Urine collected: clean catch specimen, sent to lab. ts3 15:20 Inserted saline lock: 20 gauge in left antecubital area, using aseptic technique. Blood nh2 collected. Flushed with 10 mL NS. 15:43 CT Stroke Brain w/o Contrast In Process Unspecified. EDMS 15:43 CT Head Angio In Process Unspecified. EDMS 15:43 CT Neck Angio In Process Unspecified. EDMS 15:59 Dylan Hays MD is Referral Physician. liz 16:00 No provider procedures requiring assistance completed. nh2 16:45 IV discontinued, intact, bleeding controlled, No redness/swelling at site. Pressure nh2 dressing applied. Administered Medications: 15:30 Drug: NS 0.9% IV 1000 ml IV at 1000 ml once; to be given as a bolus over 60 minutes nh2 Route: IV; Rate: 1000 ml; Site: left antecubital; 16:21 Follow up: IV Status: Completed infusion; IV Intake: 1000ml nh2 15:30 Drug: foLIC Acid IVPB 1 mg IVPB once Route: IVPB; Site: left antecubital; nh2 16:21 Follow up: Response: No adverse reaction nh2 15:31 Drug: Ativan IVP 1 mg IVP once; VO from Dr. Villaseñor, Repeat x1 if needed Route: IVP; nh2 Site: right antecubital; 16:00 Follow up: Response: No adverse reaction; Anxiety decreased nh2 15:55 Drug: Aspirin PO Chewable Tablet 324 mg PO once; 81 mg tablets x [address] NEG Route: PO; nh2 16:21 Follow up: Response: No adverse reaction nh2 16:25 Drug: Ativan IVP 1 mg IVP once; Repeat per MD order Route: IVP; Site: left antecubital; nh2 16:45 Follow up: Response: No adverse reaction nh2 Medication: 15:30 VIS not applicable for this client. nh2 Intake: 16:21 IV: 1000ml; Total: 1000ml. nh2 Outcome: 15:59 Discharge ordered by MD. liz 16:40 Discharged to home ambulatory, with significant other, nh2 16:40 Condition: stable 16:40 Discharge instructions given to patient, significant other, Instructed on discharge instructions, follow up and referral plans. medication usage, Demonstrated understanding of instructions, follow-up care, medications, Prescriptions given X 1, 16:42 Patient left the ED. iw NIH Stroke Scale - NIH Stroke Score Date: 03/23/2025 Time: 15:36 Total Score = 0 10. Dysarthria (speech clarity - read or repeat words) - 0(Normal) 11. Extinction and Inattention (visual/tactile/auditory/spatial/personal) - 0(No abnormality) 1a. Level of Consciousness (LOC) - 0(Alert) 1b. Level of Consciousness (LOC) (Month \\T\\ Age) - 0(Both) 1c. LOC Commands (Open \\T\\ Closes Eyes/Printing Services Coordinator) - 0(Both) 2. Best Gaze (Lateral Gaze Paresis) - 0(Normal) 3. Visual Field Loss - 0(No visual loss) 4. Facial Palsy - 0(Normal) 5a. Left Arm: Motor (10-second hold) - 0(No drift) 5b. Right Arm: Motor (10-second hold) - 0(No drift) 6a. Left Leg: Motor (5-second hold - always test supine) - 0(No drift) 6b. Right Leg: Motor (5-second hold - always test supine) - 0(No drift) 7. Limb Ataxia (finger/nose \\T\\ heel/barrera - test with eyes open) - 0(Absent) 8. Sensory Loss (pinprick arms/legs/face) - 0(Normal) 9. Best Language: Aphasia (description/naming/reading) - 0(No aphasia) Initials: liz Signatures: Dispatcher [employer] EDMS Jonnathan Villaseñor MD MD cha Williams, Irene, RN RN Katelyn Dunbar 3 Tasneem Corona RN RN Nirmal Valdez Jr, RN RN [facility] Rosetta Jimenez 3 Maria Isabel Freitas ts3 Corrections: (The following items were deleted from the chart) 15:35 15:31 General: Appears uncomfortable, Behavior is cooperative, anxious, quiet, nh2 Reports feeling ill for fatigue for 1-2 days, nh2 15:35 15:31 Neuro: Level of Consciousness is awake, alert, obeys commands, Oriented nh2 to person, place, time, situation, Appropriate for age Reports weakness in left side of body since 3 days ago nh2 15:35 15:31 Cardiovascular: Patient's skin is warm and dry. Rhythm is sinus rhythm nh2nh2 15:35 15:31 Respiratory: Reports shortness of breath on exertion cough that is nh2 aggravated by smoking/vaping Airway is patent Trachea midline Respiratory effort is even, unlabored, Respiratory pattern is regular, symmetrical, nh2 15:35 15:31 GI: Abdomen is flat, non-distended, Reports nausea, nh2 nh2 15:35 15:31 : No signs and/or symptoms were reported regarding the genitourinary nh2 system. nh2 15:31 EENT: No signs and/or symptoms were reported regarding the EENT system. nh2 15:31 Derm: Skin is intact, Skin is pink, warm \\T\\ dry. Skin temperature is warm nh2 nh2 15:31 Musculoskeletal: Circulation, motion, and sensation intact. Range of nh2 motion: intact in all extremities, 15: Pain: Denies pain. nh2 nh2 15 14:45 Neuro: Level of Consciousness is awake, alert, obeys commands, Oriented nh2 to person, place, time, situation, Appropriate for age Reports numbness in left side of body since 3 days ago weakness in left side of body since 3 days ago nh2
[2025-03-23 16:17] LABS: AST/SGOT < 10 U/L (15-37); C-Reactive Protein < 2.90 mg/L (<3.00); Troponin High Sensitivity < 3.0 pg/mL (<58.9)
[2025-03-23 16:46] VITALS: TEMP 98.5
[2025-03-23 16:48] VITALS: BP 127/91; O2SAT 99
== END 2025-03-23 16:42 | disposition home or self-care (01) ==
LOC: ER 14:09
DX: R51.9 Headache, unspecified (principal); F41.9 Anxiety disorder, unspecified; R20.2 Paresthesia of skin
CPT/HCPCS: 93005; 85025; 80048; 36415; 83735; 85610; 80061; 80076; 81003; 84484; 83690; 83880; 86140; 70496; 70498; 70450; 71045; 99284; Q9967; J7030